=== PATIENT | male | born 1945 | race Caucasian/White ===

== ENCOUNTER 2017-07-25 12:02 | Outpatient (CLI) | payer MEDICARE, OTHER | END 2017-07-25 23:59 | disposition home or self-care (01) | LOC: RAD 12:02 | PROVIDERS: ATTEND Internal Medicine | DX: J90 Pleural effusion, not elsewhere classified (principal); I51.7 Cardiomegaly; I70.0 Atherosclerosis of aorta | CPT/HCPCS: 71020-TC ==

== ENCOUNTER 2017-09-26 13:34 | Outpatient (CLI) | payer MEDICARE, OTHER | END 2017-09-26 23:59 | disposition home or self-care (01) | LOC: RAD 13:34 | PROVIDERS: ATTEND Internal Medicine | DX: I51.7 Cardiomegaly (principal); J18.9 Pneumonia, unspecified organism; J90 Pleural effusion, not elsewhere classified; R09.89 Other specified symptoms and signs involving the circulatory and respiratory systems | CPT/HCPCS: 71046 ==

== ENCOUNTER 2018-01-02 09:25 | Outpatient (CLI) | payer MEDICARE, OTHER ==
[2018-01-02] MEDS ORDERED: BARIUM SULFATE 98% 135 ML SUSP.RECON PO ONE (09:42)
== END 2018-01-02 23:59 | disposition home or self-care (01) ==
LOC: RAD 09:25
PROVIDERS: ATTEND Internal Medicine
DX: K44.9 Diaphragmatic hernia without obstruction or gangrene (principal); J90 Pleural effusion, not elsewhere classified; K22.2 Esophageal obstruction; J43.9 Emphysema, unspecified
CPT/HCPCS: 74230-TC